=== PATIENT | female | born 1965 | race Caucasian/White ===

== ENCOUNTER 2022-03-20 17:06 | Emergency (ER) | payer BC ==
[2022-03-20] MEDS ORDERED: Lidocaine 1% PF 2 ML SDV INJECT ONE (17:57)
[2022-03-20] MEDS ORDERED: Diphtheria,Pertussis(Acell),Tetanus Vaccine 0.5 ML Syringe IM ONE (17:57)
[2022-03-20] MEDS ORDERED: Bacitracin Oint 1 GM U/D Packet TOP ONE (17:58)
== END 2022-03-20 18:21 | disposition home or self-care (01) ==
LOC: MW.ED 17:06
DX: S61.211A Laceration without foreign body of left index finger without damage to nail, initial encounter (principal); Z23 Encounter for immunization; W26.0XXA Contact with knife, initial encounter
CPT/HCPCS: 12001; 99282